=== PATIENT | female | born 1960 | race Caucasian/White ===

== ENCOUNTER 2018-07-12 08:14 | Emergency (ER) | payer BC ==
[2018-07-12] MEDS ORDERED: Sodium Chloride 0.9% 1,000 ML IV ONE ×2 (08:20→11:16)
[2018-07-12] MEDS ORDERED: Ondansetron 4 MG/2 ML SDV ONE (08:21)
[2018-07-12] MEDS ORDERED: Ondansetron 4 MG/2 ML SDV IVPUSH ONE (08:21)
--- NOTE | 2018-07-12 08:21 | EDM.PDOC ---
ED HPI GENERAL MEDICAL PROBLEM - General Stated Complaint: STOMACH PAIN Time Seen by Provider: 07/12/18 08:20 Source of Information: Reports: Patient - History of Present Illness INITIAL COMMENTS - FREE TEXT/NARRATIVE: HISTORY AND PHYSICAL: History of present illness: [Patient presents with abdominal pain in the right lower quadrant which began yesterday at noon increasing in severity and episode of vomiting here in the emergency room no fever chills sweats ]Patient has a history of uterine cancer post hysterectomy history of Crohn's disease found on colonoscopy Review of systems: As per history of present illness and below otherwise all systems reviewed and negative. Past medical history: As per history of present illness and as reviewed below otherwise noncontributory. Surgical history: As per history of present illness and as reviewed below otherwise noncontributory. Social history: No reported history of drug or alcohol abuse. Family history: As per history of present illness and as reviewed below otherwise noncontributory. Physical exam: HEENT: Atraumatic, normocephalic, pupils reactive, negative for conjunctival pallor or scleral icterus, mucous membranes moist, throat clear, neck supple, nontender, trachea midline. Lungs: Clear to auscultation, breath sounds equal bilaterally, chest nontender. Heart: S1S2, regular, negative for clicks, rubs, or JVD. Abdomen: Protuberant abdomen exquisitely tender in the right lower quadrant on light palpation. Negative for masses or hepatosplenomegaly. Negative for costovertebral tenderness. Pelvis: Stable nontender. Genitourinary: Deferred. Rectal: No Mass scar or lesion guaic negative Extremities: Atraumatic, negative for cords or calf pain. Neurovascular unremarkable. Neuro: Awake, alert, oriented. Cranial nerves II through XII unremarkable. Cerebellum unremarkable. Motor and sensory unremarkable throughout. Exam nonfocal. Diagnostics: []CBC CMP troponin lipase INR blood cultures 2 lactic acid UA guaiac EKG Chest [address] abdomen pelvis with contrast Therapeutics: [Normal saline bolus Zofran 8 mg IV 2 units packed red blood cells , crossmatched K central weight-based Vitamin K10 IV and 10 IM patient transferred to Dr. [facility] ER via air ambulance Impression: Abdominal hematoma with what appears to be active bleeding Hypotension Anemia Vomiting Chronic history of baseline Definitive disposition and diagnosis as appropriate pending reevaluation and review of above. Right Lower Abdomen Pain Score (Numeric/FACES): 6 - Related Data Allergies Allergy/AdvReac Type Severity Reaction Status Date / Time Penicillins Allergy Anaphylactic Verified 07/12/18 08:27 Shock Home Meds: Home Meds Warfarin Sodium 10 mg PO ASDIRECTED 03/17/14 [History] atorvaSTATin Calcium [Atorvastatin Calcium] 1 tab PO DAILY 03/17/14 [History] Venlafaxine HCl [Venlafaxine ER] 75 mg PO DAILY 06/07/15 [History] Lisinopril/Hydrochlorothiazide [Lisinopril-Hctz 20-25 mg Tab] 1 each PO DAILY [History] Olmesartan Medoxomil 1 tab DAILY 07/12/18 [History] Past Medical History HEENT History: Reports: None Cardiovascular History: Reports: Heart Murmur, High Cholesterol Other Cardiovascular History: "trivial heart murmur" Respiratory History: Reports: None Gastrointestinal History: Reports: Hiatal Hernia 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 (See Below) Other BASKETBALL COACH History: hx hysterectomy for uterine cancer Neurological History: Reports: CVA Other Neuro History: wallenberg stroke Psychiatric History: Reports: Depression Endocrine/Metabolic History: Hematologic History: Reports: Anticoagulation Therapy Immunologic History: Reports: None Oncologic (Cancer) History: Reports: Uterine Dermatologic History: Reports: Eczema - Past Surgical History Musculoskeletal Surgical History: Reports: Arthroscopic Knee ED ROS GENERAL - Review of Systems Review Of Systems: See Below ED EXAM, GENERAL - Physical Exam Exam: See Below Course - Vital Signs Last Recorded V/S: Last Vital Signs Temp 97.8 F 07/12/18 11:00 Pulse 65 07/12/18 11:00 Resp 16 07/12/18 11:00 BP 99/42 L 07/12/18 11:00 Pulse Ox 98 07/12/18 11:00 - Orders/Labs/Meds Orders: Active Orders 24 hr Category Date Time Status EKG Documentation Completion [RC] STAT Care 07/12/18 08:20 Active Abdomen Pelvis w Cont [CT] Stat Exams 07/12/18 08:21 Taken CULTURE BLOOD [BC] Stat Lab 07/12/18 09:00 Received CULTURE BLOOD [BC] Stat Lab 07/12/18 09:30 Received CULTURE URINE [RM] Stat Lab 07/12/18 09:05 Received Guaiac [OCCULT BLOOD DIAGNOSTIC] [OP] Stat Lab 07/12/18 09:49 Ordered RED BLOOD CELLS LP [BBK] Stat Lab 07/12/18 10:37 Results TYPE AND SCREEN [BBK] Stat Lab 07/12/18 10:37 Results Phytonadione [AquaMephyton] Med 07/12/18 11:45 Once 10 mg IM ONETIME ONE Phytonadione [AquaMephyton] 10 mg Med 07/12/18 11:34 Active Sodium Chloride 0.9% [Normal Saline] 50 ml IV NOW Sodium Chloride 0.9% [Normal Saline] 1,000 ml Med 07/12/18 11:16 Active IV .BOLUS Blood Culture x2 Reflex Set [OM.PC] Stat Oth 07/12/18 08:44 Ordered Transfuse Red Blood Cells [COMM] Stat Oth 07/12/18 10:26 Ordered Medication Orders Sodium Chloride (Normal Saline) 1,000 mls @ 999 mls/hr IV .BOLUS ONE Stop: 07/12/18 12:16 Last Admin: 07/12/18 09:50 Dose: 999 mls/hr Phytonadione 10 mg/ Sodium (Chloride) 51 mls @ 100 mls/hr IV NOW ONE Stop: 07/12/18 12:04 Phytonadione (Aquamephyton) 10 mg IM ONETIME ONE Stop: 07/12/18 11:46 Labs: Laboratory Tests 07/12/18 07/12/18 07/12/18 Range/Units 08:30 08:30 08:30 WBC 12.28 H (4.0-11.0) K/uL RBC 2.91 L (4.30-5.90) M/uL Hgb 8.6 L (12.0-16.0) g/dL Hct 25.8 L (36.0-46.0) % MCV 88.7 (80.0-98.0) fL MCH 29.6 (27.0-32.0) pg MCHC 33.3 (31.0-37.0) g/dL RDW Std Deviation 42.0 (28.0-62.0) fl RDW Coeff of Alfredo 13 (11.0-15.0) % Plt Count 282 (150-400) K/uL MPV 8.70 (7.40-12.00) fL Add Manual Diff YES Neutrophils % (Manual) 80 (48.0-80.0) % Band Neutrophils % 7 % Lymphocytes % (Manual) 13 L (16.0-40.0) % Nucleated RBC % 0.0 /100WBC Absolute Seg Neuts 9.8 H (1.4-5.7) Band Neutrophils # 0.9 Lymphocytes # (Manual) 1.6 (0.6-2.4) Nucleated RBCs # 0 K/uL INR 3.93 Lactate (0.20-2.00) mmol/L Sodium 126 L (136-145) mmol/L Potassium 3.9 (3.5-5.1) mmol/L Chloride 92 L (98-107) mmol/L Carbon Dioxide 23.1 (21.0-32.0) mmol/L BUN 25 H (7.0-18.0) mg/dL Creatinine 1.3 H (0.6-1.0) mg/dL Est Cr Clr Drug Dosing 40.24 mL/min Estimated GFR (MDRD) 41.9 ml/min Glucose 197 H (74-106) mg/dL Calcium 8.8 (8.5-10.1) mg/dL Total Bilirubin 0.6 (0.2-1.0) mg/dL AST 23 (15-37) IU/L ALT 36 (14-63) IU/L Alkaline Phosphatase 88 (46-116) U/L Troponin I < 0.050 (0.000-0.056) ng/mL Total Protein 6.2 L (6.4-8.2) g/dL Albumin 3.1 L (3.4-5.0) g/dL Globulin 3.1 (2.6-4.0) g/dL Albumin/Globulin Ratio 1.0 (0.9-1.6) Lipase 107 (73-393) U/L Urine Color Urine Appearance Urine pH (5.0-8.0) Ur Specific Anita (1.001-1.035) Urine Protein (NEGATIVE) mg/dL Urine Glucose (UA) (NEGATIVE) mg/dL Urine Ketones (NEGATIVE) mg/dL Urine Occult Blood (NEGATIVE) Urine Nitrite (NEGATIVE) Urine Bilirubin (NEGATIVE) Urine Urobilinogen (<2.0) EU/dL Ur Leukocyte Esterase (NEGATIVE) Urine RBC (0-2/HPF) Urine WBC (0-5/HPF) Ur Epithelial Cells (NONE-FEW) Urine Bacteria (NEGATIVE) Blood Type Antibody Screen Crossmatch 07/12/18 07/12/18 07/12/18 Range/Units 09:00 09:05 10:37 WBC (4.0-11.0) K/uL RBC (4.30-5.90) M/uL Hgb (12.0-16.0) g/dL Hct (36.0-46.0) % MCV (80.0-98.0) fL MCH (27.0-32.0) pg MCHC (31.0-37.0) g/dL RDW Std Deviation (28.0-62.0) fl RDW Coeff of Alfredo (11.0-15.0) % Plt Count (150-400) K/uL MPV (7.40-12.00) fL Add Manual Diff Neutrophils % (Manual) (48.0-80.0) % Band Neutrophils % % Lymphocytes % (Manual) (16.0-40.0) % Nucleated RBC % /100WBC Absolute Seg Neuts (1.4-5.7) Band Neutrophils # Lymphocytes # (Manual) (0.6-2.4) Nucleated RBCs # K/uL INR Lactate 2.9 H (0.20-2.00) mmol/L Sodium (136-145) mmol/L Potassium (3.5-5.1) mmol/L Chloride (98-107) mmol/L Carbon Dioxide (21.0-32.0) mmol/L BUN (7.0-18.0) mg/dL Creatinine (0.6-1.0) mg/dL Est Cr Clr Drug Dosing mL/min Estimated GFR (MDRD) ml/min Glucose (74-106) mg/dL Calcium (8.5-10.1) mg/dL Total Bilirubin (0.2-1.0) mg/dL AST (15-37) IU/L ALT (14-63) IU/L Alkaline Phosphatase (46-116) U/L Troponin I (0.000-0.056) ng/mL Total Protein (6.4-8.2) g/dL Albumin (3.4-5.0) g/dL Globulin (2.6-4.0) g/dL Albumin/Globulin Ratio (0.9-1.6) Lipase (73-393) U/L Urine Color YELLOW Urine Appearance CLEAR Urine pH 6.5 (5.0-8.0) Ur Specific Anita 1.025 (1.001-1.035) Urine Protein TRACE H (NEGATIVE) mg/dL Urine Glucose (UA) NEGATIVE (NEGATIVE) mg/dL Urine Ketones NEGATIVE (NEGATIVE) mg/dL Urine Occult Blood NEGATIVE (NEGATIVE) Urine Nitrite NEGATIVE (NEGATIVE) Urine Bilirubin NEGATIVE (NEGATIVE) Urine Urobilinogen 1.0 (<2.0) EU/dL Ur Leukocyte Esterase NEGATIVE (NEGATIVE) Urine RBC 0-1 (0-2/HPF) Urine WBC 1-2 (0-5/HPF) Ur Epithelial Cells MODERATE (NONE-FEW) Urine Bacteria 1+ H (NEGATIVE) Blood Type B NEGATIVE Antibody Screen NEGATIVE Crossmatch See Detail Meds: Medications Generic Name Dose Route Start Last Admin Trade Name Luis Armando PRN Reason Stop Dose Admin Sodium Chloride 1,000 mls @ 999 mls/hr 07/12/18 11:16 07/12/18 09:50 Normal Saline IV 07/12/18 12:16 999 mls/hr .BOLUS ONE Administration Phytonadione 10 mg/ Sodium 51 mls @ 100 mls/hr 07/12/18 11:34 Chloride IV 07/12/18 12:04 NOW ONE Phytonadione 10 mg 07/12/18 11:45 Aquamephyton IM 07/12/18 11:46 ONETIME ONE Discontinued Medications Generic Name Dose Route Start Last Admin Trade Name Luis Armando PRN Reason Stop Dose Admin Sodium Chloride 1,000 mls @ 999 mls/hr 07/12/18 08:20 07/12/18 08:38 Normal Saline IV 07/12/18 09:20 999 mls/hr STAT ONE Administration Iopamidol 75 ml 07/12/18 10:30 07/12/18 10:33 Isovue Multipack-370 (76%) IVPUSH 07/12/18 10:31 75 ml ONETIME STA Administration Morphine Sulfate 2 mg 07/12/18 09:36 07/12/18 11:12 Morphine IVPUSH 07/12/18 09:37 2 mg ONETIME ONE Administration Ondansetron HCl 8 mg 07/12/18 08:21 07/12/18 08:38 Zofran IVPUSH 07/12/18 08:22 8 mg ONETIME ONE Administration Ondansetron HCl Confirm 07/12/18 08:21 07/12/18 08:39 Zofran Administered 07/12/18 08:22 Not Given Dose 8 mg .ROUTE .STK-MED ONE Phytonadione 10 mg 07/12/18 11:33 Aquamephyton IM 07/12/18 11:34 ONETIME ONE Departure - Departure Time of Disposition: 11:47 Disposition: DC/Tfer to Acute Hospital 02 Condition: Poor Clinical Impression: Hematoma, Active internal bleeding - Discharge Information Referrals: Tian Hobbs MD [Primary Care Provider] - - My Orders Last 24 Hours: My Active Orders 07/12/18 08:20 EKG Documentation Completion [RC] STAT 07/12/18 08:21 Abdomen Pelvis w Cont [CT] Stat 07/12/18 08:44 Blood Culture x2 Reflex Set [OM.PC] Stat 07/12/18 09:00 CULTURE BLOOD [BC] Stat 07/12/18 09:05 CULTURE URINE [RM] Stat 07/12/18 09:30 CULTURE BLOOD [BC] Stat 07/12/18 09:49 Guaiac [OCCULT BLOOD DIAGNOSTIC] [OP] Stat 07/12/18 10:26 Transfuse Red Blood Cells [COMM] Stat 07/12/18 10:37 RED BLOOD CELLS LP [BBK] Stat TYPE AND SCREEN [BBK] Stat 07/12/18 11:16 Sodium Chloride 0.9% [Normal Saline] 1,000 ml IV .BOLUS 07/12/18 11:34 Phytonadione [AquaMephyton] 10 mg Sodium Chloride 0.9% [Normal Saline] 50 ml IV NOW 07/12/18 11:45 Phytonadione [AquaMephyton] 10 mg IM ONETIME ONE - Assessment/Plan Last 24 Hours: My Active Orders 07/12/18 08:20 EKG Documentation Completion [RC] STAT 07/12/18 08:21 Abdomen Pelvis w Cont [CT] Stat 07/12/18 08:44 Blood Culture x2 Reflex Set [OM.PC] Stat 07/12/18 09:00 CULTURE BLOOD [BC] Stat 07/12/18 09:05 CULTURE URINE [RM] Stat 07/12/18 09:30 CULTURE BLOOD [BC] Stat 07/12/18 09:49 Guaiac [OCCULT BLOOD DIAGNOSTIC] [OP] Stat 07/12/18 10:26 Transfuse Red Blood Cells [COMM] Stat 07/12/18 10:37 RED BLOOD CELLS LP [BBK] Stat TYPE AND SCREEN [BBK] Stat 07/12/18 11:16 Sodium Chloride 0.9% [Normal Saline] 1,000 ml IV .BOLUS 07/12/18 11:34 Phytonadione [AquaMephyton] 10 mg Sodium Chloride 0.9% [Normal Saline] 50 ml IV NOW 07/12/18 11:45 Phytonadione [AquaMephyton] 10 mg IM ONETIME ONE
[2018-07-12 09:26] LABS: CHLORIDE,CL 92 mmol/L (98-107); SODIUM,NA 126 mmol/L (136-145)
[2018-07-12] MEDS ORDERED: Morphine 2 MG/ML Syringe IVPUSH ONE (09:36)
[2018-07-12] MEDS ORDERED: Iopamidol 755 MG/ML 200 ML Multipack Bottle IVPUSH STA (10:30)
--- NOTE | 2018-07-12 10:46 | CR ---
INDICATION: Pain. Shortness of breath. Abdominal pain. TECHNIQUE: AP portable chest x-ray. FINDINGS: Heart is globular in shape and mildly enlarged. Lungs are clear without infiltrate or consolidation. Chest otherwise unremarkable. Dictated by Anant Monson MD @ Jul 12 2018 10:44AM Signed by Dr. Anant Monson @ Jul 12 2018 10:44AM
[2018-07-12] MEDS ORDERED: Phytonadione 10 MG in Sodium Chloride 0.9% 50 ML IV ONE (11:34)
[2018-07-12] MEDS ORDERED: Factor IX Complex Human 500 UNIT VIAL IV SCH (12:00)
[2018-07-13 11:32] VITALS: BP 120/73
--- NOTE | 2018-07-14 11:26 | CT ---
EXAM DATE: 07/12/18 PATIENT'S AGE: 58 Patient: IBRAHIMA MORGAN Facility: [place], [place] Site . Site : 1960 Study: CT Abdomen/Pelvis [id number]/[id number] 10:30:08 AM Ordering Physician: Megan Buenrostro Final Report: INDICATION: Right lower quadrant pain. Crohn disease. Uterine carcinoma. TECHNIQUE: CT scan of the abdomen and pelvis. IV contrast. FINDINGS: Pelvis: There is a large heterogeneous area of soft tissue attenuation measuring 9 x 14 cm. Focal areas of increased density or contrast enhancement are present along the posterior margin of the pelvic lesion as well as in the lower right rectus abdominis and suprapubic right lower quadrant symphysis. Body appearance could suggest a hematoma with areas of active bleeding. The urinary bladder is decompressed with mass effect and displacement. Free fluid in the pelvis is present which has moderate attenuation and could contain hemorrhage. Additional stranding in the extraperitoneal posterior para renal space and stranding in the subcutaneous superficial right lower quadrant. Thickening and probable hematoma in the right rectus abdominis. Areas of hematocrit layering may be present. Uterus is absent. No adnexal mass. Aorta is normal in caliber, no retroperitoneal adenopathy. GI tract is normal in caliber. Abdomen: Normal liver, spleen, pancreas, adrenal glands, kidneys. No calcified gallstones. Hiatal hernia. Lung bases: Clear. Skeletal: Asymmetric but nonspecific benign appearing sclerosis in the left symphysis pubis. No signs of a fracture. Verbal communication with the ordering provider. The patient has not had obvious trauma the patient is anticoagulated on Coumadin with INR of 4.0 and hypotension and anemia requiring transfusion. IMPRESSION: 1. Probable large hematoma in the pelvis and possible areas of active arterial bleeding. 2. Additional hematoma in the right abdominal wall and rectus sheath. 3. No adenopathy. No bowel wall thickening. No visualized fractures. 4. Critical results communicated ordering provider. Recommendation given for consideration to interventional radiology consultation on given the possibility of active bleeding. Telephone communication ordering provider at 11:30 a.m.. Please note that all CT scans at this facility use dose modulation, iterative reconstruction, and/or weight-based dosing when appropriate to reduce radiation dose to as low as reasonably achievable. Dictated by Mandeep Lance MD @ Jul 12 2018 11:26AM (Electronic Signature) Report Signed by Proxy. [facility]
== END 2018-07-12 12:45 ==
LOC: MW.ED 08:14
DX: R58 Hemorrhage, not elsewhere classified (principal); E78.00 Pure hypercholesterolemia, unspecified; Z86.73 Personal history of transient ischemic attack (TIA), and cerebral infarction without residual deficits; F32.9 Major depressive disorder, single episode, unspecified; D64.9 Anemia, unspecified; Z88.0 Allergy status to penicillin; Z79.899 Other long term (current) drug therapy; Z79.01 Long term (current) use of anticoagulants; I95.9 Hypotension, unspecified
CPT/HCPCS: 36415; 36430; 71045; 74177; 80053; 81001; 82272; 83605; 83690; 84484; 85025; 85610; 86850; 86900; 86901; 86920; 86921; 86922; 87040; 87086; 87804; 93005; 96361; 96372; 96374; 96375; 99285; C9132; J2270; J2405; J3430; J7040; J7050; P9016; Q9967